=== PATIENT | female | born 1930 ===

== ENCOUNTER → 2016-10-17 | Day surgery (SDC) | payer OTHER ==
[2016-08-19 15:12] VITALS: BMI 24.0
[2016-08-23 13:12] VITALS: Ht 175.3 cm; Wt 72.7 kg
[~2016-10-17] VITALS: Ht 175.3 cm; Wt 72.7 kg
[~2016-10-17] MED LIST: ACETAMINOPHEN 325 MG TAB PO PRN; ATROPINE SULFATE 0.1 MG/ML 5ML SYR IV PRN; ATROPINE SULFATE 1% OP SOLN 2 ML BTL ONE; AcetylCHOLine CHL OP SOL 1:100 2 ML BTL ONE; BSS 500ML IRRIG ONE; BSS FLUSH ONE; DEXAMETHASONE SOD INJ 4 MG/ML VIAL ONE; EpHEDrine SULFATE INJ 50 MG/ML AMP IV PRN; HEALON 10MG/ML 0.85 ML SYR INSTIL ONE; HydrALAZINE HCL 20 MG/ML VIAL ONE; LABETALOL HCL IV 5 MG/ML 20ML ONE; LACTATED RINGER'S 1000ML 500 ML IV ONE; LACTATED RINGER'S 1000ML 500 ML IV SCH; LIDOCAINE 3.5% OPH GEL PER APPLICATION CHARGE OPR SCH; LIDOCAINE 4% OP SOLN DROP CHARGE ONE; LIDOCAINE 4% OP SOLN DROP CHARGE OPR SCH; LIDOCAINE HCL 1% MPF 2 ML VIAL ONE; LIDOCAINE HCL 2% 2 ML VIAL (20MG/ML) ONE; LMGOPS OPL; METO50TA16 PO; MIDAZOLAM HCL 1 MG/ML 2ML VIAL ONE; MOXIFLOXACIN OPH SOLN PER DROP CHARGE ONE; MOXIFLOXACIN OPH SOLN PER DROP CHARGE OPR SCH; NURSING VERBAL MED ORDER ONE; NXM/40 PO; ONDA8TAB12 PO; ONDANSETRON INJ 2 MG/ML 2 ML VIAL ONE; OXYC7.5T65 PO; PATIENT'S ALLERGY INFO NEEDS ENTERED SCH; PEDICHW44 PO; POVIDONE-IODINE OP SOLN 30 ML BTL ONE; PRED1SUS3 OPR; PROPARACAINE 0.5% OP SOLN PER DROP CHARGE OPR SCH; PROPOFOL IV EMULSION 10 MG/ML 20 ML VIAL IV ONE; TETRACAINE HCL (OPHTH) 60 DROPS/4 ML BTL OP ONE; TOBRAMYCIN/DEXAMETHASONE OPH OINT PER APPLN CHARGE ONE; ZOLP10TA PO
--- NOTE | 2016-10-17 08:08 | History & Physical Bridge - [place] ---
H&P Re-Evaluation Bridge Note: I have examined the patient, reviewed the History & Physical and in the interval since the performance of the History & Physical I have noted the following changes of clinical significance: No changes noted
[2016-10-17] MEDS: MOXIFLOXACIN OPH SOLN PER DROP CHARGE OPR SCH ×3 (08:15→08:35)
[2016-10-17] MEDS: BRIMONIDINE TART 0.2% OP SOLN PER DROP CHARGE ONE ×2 (10:18→10:24)
--- NOTE | 2016-10-17 10:27 | Discharge Instructions-SurgCtr ---
Discharge Instructions Visit Reason for Visit: Right Eye Discharge Discharge Diagnosis / Problem: corneal edema right eye Discharge Goals Goal(s): Improve function Activity Recommendations Activity Limitations: per Instructions/Follow-up section Lifting Limitations: none Anesthesia . Post Anesthesia Instructions: If you have had General Anesthesia or IV Sedation: * Do not drive today. * Resume driving when surgeon permits. * Do not make important decisions or sign legal documents today. * Call surgeon for: 1. Temperature elevations greater than 101 degrees F. 2. Uncontrollable pain. 3. Excessive bleeding. 4. Persistent nausea and vomiting. 5. Medication intolerance (nausea, vomiting or rash). * For nausea and vomiting use only clear liquids such as: tea, soda, bouillon until nausea subsides, then gradually increase diet as tolerated. * If you have any concerns or questions, call your surgeon's office. If physician is unavailable and it is an emergency, call 911 or go to the nearest emergency room. . Instructions / Follow-Up Instructions / Follow-Up ACTIVITY RECOMMENDATIONS: * Bedrest (Eyes to the peri) MEDICATIONS: Resume previous medications unless instructed otherwise by your surgeon. Eye drops (today and tomorrow): Vigamox - one drop in operative eye 4 times a day Durezol - one drop in operative eye 4 times a day SPECIAL CARE INSTRUCTIONS: * If any problems or concerns, please call Dr. Espinal's office at . * Keep plastic shield taped over eye to sleep at night. * Keep plastic shield taped over eye except to administer eye drops. * Keep plastic shield on until office visit the following day. FOLLOW UP VISIT: Follow-up with Dr. Espinal in the [place] office as scheduled. If not already scheduled, please call the office at . Diet Recommendations Home Diet: resume previous diet Procedures Procedures Performed: Right Eye Descements Stripping Automated Endothelial Keratectomy Pending Studies Studies pending at discharge: yes List of pending studies: donor cornea culture Medical Emergencies . Who to Call and When: Medical Emergencies: If at any time you feel your situation is an emergency, please call 911 immediately. . Non-Emergent Contact Non-Emergency issues call your: Rim Turning Machine Operator . . "Provider Documentation" section prepared by Jw Espinal.
--- NOTE | 2016-10-17 10:27 | [facility] Post Operative Brief Note ---
Immediate Operative Summary Operative Date Oct 17, 2016. Pre-Operative Diagnosis Corneal Edema Right Eye Post-Operative Diagnosis Same Procedure(s) Performed Right Eye Descements Stripping Automated Endothelial Keratectomy Surgeon Dr. Espinal Contracts Director Surgeon(s) None Estimated Blood Loss None Findings corneal edema right eye Specimens Corneal Donor Rim Aero/Marissa culture sent Complication(s) None Disposition Recovery Room / PACU
--- NOTE | 2016-10-17 10:56 | OPERATIVE REPORT ---
DATE OF OPERATION: 10/17/2016 PREOPERATIVE DIAGNOSIS: Corneal edema, right eye. POSTOPERATIVE DIAGNOSIS: Same. PROCEDURE PERFORMED: Descemet stripping automated endothelial keratoplasty, right eye. COMPLICATIONS: None. ESTIMATED BLOOD LOSS: None. ANESTHESIA of general anesthesia. DESCRIPTION OF PROCEDURE: After informed consent was obtained in the holding area, attention was first turned to the donor cornea. It was trephinated by myself using an 8.0-mm Rosamaria trephine. It was covered in Optisol and then set aside. The patient was then brought back to the operating room where cardiac monitoring leads was administered by anesthesia. General anesthesia with an LMA was then administered. The patient's right eye was then prepped and draped in the usual sterile fashion. A wire lid speculum was placed in the right eye and the operating microscope swung into position. Using 0.12 forceps and a supersharp blade, a paracentesis port was made at the 11 o'clock position of the patient's right eye. The 9 o'clock position was then marked with calipers for a 4-mm width and the previously used Rosamaria trephine was then inked and used to jalen the corneal surface. A 2.2-mm keratome blade was then used to make a shelved clear cornea incision at the 9 o'clock position of the patient's right eye. The anterior chamber was then filled with Healon. A reverse Sinskey hook was then used to score Descemet's membrane around the previously marked diameter. Descemet's stripper was then used to remove the Descemet's membrane from within the eye. Stromal refrigeration service technician was then used to roughen the periphery of the scored stromal bed. The primary incision was then widened for a total of 4 mm. Irrigation aspiration handpiece was then used to remove the viscoelastic material from the eye. The donor cornea was then placed endothelial side up on the host cornea and a drop of Healon was placed on it. It was then placed on the EndoSerter and retracted into the EndoSerter. The EndoSerter was then used to inject the host graft into the anterior chamber. A single 10-0 nylon suture was placed through the main incision and the graft was unfolded underneath BSS and air. A complete air fill of the eye was achieved and the graft was centered. The eye was covered in Healon and 15 minutes elapsed, after which time the interface was milked using a Trimble LASIK roller. Three drops of atropine were then placed on the eye and the eye was recoated with EndoCoat. After another 15 minutes elapsed, the Healon was removed from the surface of the eye. A partial air fluid exchange was done leaving behind a 60% air fill. ReSure sealant was then placed over the paracentesis as well as primary incision. The wire lid speculum was then removed from the eye. Vigamox and TobraDex ointment were placed on the eye and the eye was shielded. The patient was extubated and taken to recovery area in stable condition. I attest to the content of the Intraoperative Record and any orders documented therein. Any exceptio ns are noted below.
[2016-10-17 11:45] VITALS: TEMP 36.5
[2016-10-17 12:00] VITALS: BP 160/86; PULSE 80; O2SAT 97
--- NOTE | 2016-10-17 12:03 | Anesthesia Progress Nt - [facility] ---
Anesthesia Post Op Note Date & Time Oct 17, 2016 at 12:04 Vital Signs Pain Intensity: 0 Vital Signs Past 12 Hours Date Time Temp Pulse Resp B/P Pulse Ox O2 Delivery O2 Flow Rate FiO2 10/17/16 12:00 80 18 160/86 97 Room Air 10/17/16 11:45 36.5 70 18 165/77 98 Room Air 10/17/16 11:24 170/95 10/17/16 11:22 77 13 10/17/16 11:22 76 13 95 10/17/16 11:22 37.0 74 12 160/84 95 Room Air 10/17/16 11:21 82 17 95 10/17/16 11:21 81 17 10/17/16 11:19 160/84 10/17/16 11:16 72 14 94 10/17/16 11:16 73 14 10/17/16 11:15 75 13 10/17/16 11:15 77 13 95 10/17/16 11:14 166/78 10/17/16 11:10 74 13 10/17/16 11:10 73 13 97 10/17/16 11:09 168/83 10/17/16 11:05 65 13 100 10/17/16 11:05 66 13 10/17/16 11:04 163/89 10/17/16 11:01 36.5 66 12 167/86 100 Diffusion Mask 6 10/17/16 11:00 70 18 10/17/16 11:00 70 18 100 10/17/16 10:59 167/86 10/17/16 10:55 63 14 10/17/16 10:55 60 14 100 10/17/16 10:54 62 16 10/17/16 10:54 62 16 185/92 100 10/17/16 10:49 60 18 190/88 100 10/17/16 10:49 61 18 10/17/16 10:44 59 14 10/17/16 10:44 58 14 182/88 100 10/17/16 10:39 59 15 100 10/17/16 10:39 60 15 10/17/16 10:38 59 14 10/17/16 10:38 60 14 174/87 100 10/17/16 10:34 188/100 10/17/16 10:33 36.2 67 16 190/100 99 Diffusion Mask 6 10/17/16 10:33 59 17 10/17/16 10:33 60 17 100 10/17/16 09:20 68 14 188/95 97 Nasal Cannula 2 10/17/16 09:15 67 15 202/95 97 Nasal Cannula 2 10/17/16 09:10 68 16 195/98 97 Nasal Cannula 2 10/17/16 09:05 67 14 189/92 96 Nasal Cannula 2 10/17/16 09:00 69 14 180/102 96 Nasal Cannula 2 10/17/16 08:55 68 9 179/96 97 Nasal Cannula 2 10/17/16 08:50 71 15 167/97 98 Nasal Cannula 2 10/17/16 08:46 75 16 202/98 98 Nasal Cannula 2 10/17/16 08:09 37.1 82 18 213/120 97 Room Air Notes Mental Status: alert / awake / arousable, participated in evaluation Pt Amnestic to Procedure: Yes Nausea / Vomiting: adequately controlled Pain: adequately controlled Airway Patency, RR, SpO2: stable & adequate BP & HR: stable & adequate Hydration State: stable & adequate Anesthetic Complications: no major complications apparent
== END | disposition home or self-care (01) ==
LOC: X.SURG 07:55
PROVIDERS: ATTEND Ophthalmology
DX: H18.20 Unspecified corneal edema (principal); H40.9 Unspecified glaucoma; I10 Essential (primary) hypertension; M19.90 Unspecified osteoarthritis, unspecified site